=== PATIENT | female | born 1970 | race Caucasian/White ===

== ENCOUNTER 2017-10-04 06:43 | Emergency (ER) | payer BC ==
[2017-10-04] MEDS ORDERED: Sodium Chloride 0.9% 10 ML Syringe FLUSH PRN (06:56)
[2017-10-04] MEDS ORDERED: Aspirin 81 MG Tab.Chew PO ONE (06:56)
[2017-10-04] MEDS ORDERED: Famotidine 20 MG/2 ML SDV IVPUSH ONE (06:57)
--- NOTE | 2017-10-04 07:02 | EDM.PDOC ---
ED HPI GENERAL MEDICAL PROBLEM - General Chief Complaint: Chest Pain Stated Complaint: CHEST PAIN Time Seen by Provider: 10/04/17 06:49 Source of Information: Reports: Patient History Limitations: Reports: No Limitations - History of Present Illness INITIAL COMMENTS - FREE TEXT/NARRATIVE: The patient presents with midsternal chest pain. This started last night. They only way she describes the pain is that it "hurts" and it is "pain." She has no shortness of breath with it. She has no fever but she has chills. She has had a cold recently with congestion and cough that is mild. She has no abdominal pain, nausea or vomiting. The pain was not made worse with exertion. She has never had pain like this before. She has no cardiac history. She does have HTN but no diabetes or hypercholesterolemia. She does not smoke. Onset: Gradual Duration: Day(s): (Last night) Location: Reports: Chest Quality: Reports: Other (Pain) Severity: Moderate Improves with: Reports: None Worsens with: Reports: None Associated Symptoms: Reports: Chest Pain, Cough (Mild), Fever/Chills. Denies: Diaphoresis, Headaches, Nausea/Vomiting, Shortness of Breath Middle Chest Pain Score (Numeric/FACES): 7 - Related Data Allergies Allergy/AdvReac Type Severity Reaction Status Date / Time amoxicillin Allergy Rash Verified 10/04/17 06:53 Home Meds: Home Meds Lisinopril 10 mg PO DAILY 10/04/17 [History] Past Medical History Cardiovascular History: Reports: Hypertension Social & Family History - Tobacco Use Smoking Status *Q: Never Smoker ED ROS GENERAL - Review of Systems Review Of Systems: See Below Constitutional: Reports: Chills. Denies: Fever HEENT: Reports: No Symptoms Respiratory: Reports: No Symptoms Cardiovascular: Reports: Chest Pain Endocrine: Reports: No Symptoms GI/Abdominal: Reports: No Symptoms : Reports: No Symptoms Musculoskeletal: Reports: No Symptoms Skin: Reports: No Symptoms ED EXAM, GENERAL - Physical Exam Exam: See Below Exam Limited By: No Limitations General Appearance: Alert, No Apparent Distress Ears: Normal External Exam Nose: Normal Inspection Head: Atraumatic, Normocephalic Neck: Normal Inspection Respiratory/Chest: No Respiratory Distress, Lungs Clear, Normal Breath Sounds Cardiovascular: Regular Rate, Rhythm, No Edema, No Murmur GI/Abdominal: Soft, Non-Tender, No Organomegaly, No Mass Extremities: Normal Inspection Neurological: Alert, Oriented, No Motor/Sensory Deficits EKG INTERPRETATION EKG Date: 10/04/17 Time: 06:59 Rhythm: NSR Rate (Beats/Min): 71 [place]: LAD-Left [place] Deviation P-Wave: Present QRS: Normal ST-T: Normal QT: Normal Course - Vital Signs Last Recorded V/S: Last Vital Signs Temp 83.1 F L 10/04/17 06:49 Pulse 72 10/04/17 06:49 Resp 14 10/04/17 06:49 BP 130/76 10/04/17 06:49 Pulse Ox 96 10/04/17 06:49 - Orders/Labs/Meds Orders: Active Orders 24 hr Category Date Time Status Cardiac Monitoring [RC] . DIRECTED Care 10/04/17 06:56 Active EKG Documentation Completion [RC] STAT Care 10/04/17 06:56 Active Oxygen Therapy [RC] PRN Care 10/04/17 06:56 Active Peripheral IV Care [RC] . DIRECTED Care 10/04/17 06:56 Active Chest 1V Frontal [CR] Stat Exams 10/04/17 06:57 Taken CBC W/O DIFF,HEMOGRAM [HEME] MOTH@0700 Lab 10/08/17 07:00 Ordered CBC W/O DIFF,HEMOGRAM [HEME] MOTH@0700 Lab 10/11/17 07:00 Ordered CBC W/O DIFF,HEMOGRAM [HEME] MOTH@0700 Lab 10/15/17 07:00 Ordered CBC W/O DIFF,HEMOGRAM [HEME] MOTH@0700 Lab 10/18/17 07:00 Ordered CBC W/O DIFF,HEMOGRAM [HEME] MOTH@0700 Lab 10/22/17 07:00 Ordered CBC W/O DIFF,HEMOGRAM [HEME] MOTH@0700 Lab 10/25/17 07:00 Ordered Heparin Sodium/D5W [Heparin 25,000 Units in D5W 500 ML] Med 10/04/17 09:00 Active 25,000 units in 500 ml IV TITRATE Nitroglycerin/D5W [Nitroglycerin 25 MG/D5W 250 ML] Med 10/04/17 09:00 Active 25 mg in 250 ml IV TITRATE Sodium Chloride 0.9% [Saline Flush] Med 10/04/17 06:56 Active 10 ml FLUSH ASDIRECTED PRN Peripheral IV Insertion Adult [OM.PC] Stat Oth 10/04/17 06:56 Ordered Medication Orders Heparin Sodium/Dextrose (Heparin 25,000 Units In D5w 500 Ml) 25,000 units in 500 mls @ 0 mls/hr IV TITRATE YG; 12 UNITS/KG/HR PRN Reason: Protocol Nitroglycerin/Dextrose (Nitroglycerin 25 Mg/D5w 250 Ml) 25 mg in 250 mls @ 3 mls/hr IV TITRATE YG PRN Reason: Protocol Sodium Chloride (Saline Flush) 10 ml FLUSH ASDIRECTED PRN PRN Reason: Keep Vein Open Last Admin: 10/04/17 07:23 Dose: 10 ml Labs: Laboratory Tests 10/04/17 10/04/17 10/04/17 Range/Units 07:25 07:25 07:25 WBC 10.50 H (3.98-10.04) K/mm3 RBC 5.14 (3.98-5.22) M/mm3 Hgb 15.7 (11.2-15.7) gm/L Hct 46.4 H (34.1-44.9) % MCV 90.3 (79.4-94.8) fl MCH 30.5 (25.6-32.2) pg MCHC 33.8 (32.2-35.5) g/dl RDW Std Deviation 45.0 (36.4-46.3) fL Plt Count 194 (182-369) K/mm3 MPV 10.3 (9.4-12.3) fl Neut % (Auto) 53.0 (34.0-71.1) % Lymph % (Auto) 36.2 (19.3-51.7) % [place] % (Auto) 7.2 (4.7-12.5) % Eos % (Auto) 3.1 (0.7-5.8) Baso % (Auto) 0.3 (0.1-1.2) % Neut # (Auto) 5.56 (1.56-6.13) K/mm3 Lymph # (Auto) 3.80 H (1.18-3.74) K/mm3 [place] # (Auto) 0.76 H (0.24-0.36) K/mm3 Eos # (Auto) 0.33 (0.04-0.36) K/mm3 Baso # (Auto) 0.03 (0.01-0.08) K/mm3 D-Dimer, Quantitative 0.59 (0.19-0.59) mg/L Sodium 138 (136-145) mEq/L Potassium 4.0 (3.5-5.1) mEq/L Chloride 108 H (98-107) mEq/L Carbon Dioxide 17 L (21-32) mEq/L Anion Gap 17.0 H (5-15) BUN 13 (7-18) mg/dL Creatinine 0.9 (0.55-1.02) mg/dL Est Cr Clr Drug Dosing 60.46 mL/min Estimated GFR (MDRD) > 60 (>60) mL/min BUN/Creatinine Ratio 14.4 (14-18) Glucose 138 H (74-106) mg/dL Calcium 8.9 (8.5-10.1) mg/dL Total Bilirubin 0.6 (0.2-1.0) mg/dL AST 17 (15-37) U/L ALT 13 L (14-59) U/L Alkaline Phosphatase 56 (46-116) U/L Troponin I 0.090 H* (0.00-0.056) ng/mL Total Protein 7.1 (6.4-8.2) g/dl Albumin 3.0 L (3.4-5.0) g/dl Globulin 4.1 gm/dL Albumin/Globulin Ratio 0.7 L (1-2) TSH 3rd Generation (0.358-3.74) uIU/mL 10/04/17 Range/Units 07:25 WBC (3.98-10.04) K/mm3 RBC (3.98-5.22) M/mm3 Hgb (11.2-15.7) gm/L Hct (34.1-44.9) % MCV (79.4-94.8) fl MCH (25.6-32.2) pg MCHC (32.2-35.5) g/dl RDW Std Deviation (36.4-46.3) fL Plt Count (182-369) K/mm3 MPV (9.4-12.3) fl Neut % (Auto) (34.0-71.1) % Lymph % (Auto) (19.3-51.7) % [place] % (Auto) (4.7-12.5) % Eos % (Auto) (0.7-5.8) Baso % (Auto) (0.1-1.2) % Neut # (Auto) (1.56-6.13) K/mm3 Lymph # (Auto) (1.18-3.74) K/mm3 [place] # (Auto) (0.24-0.36) K/mm3 Eos # (Auto) (0.04-0.36) K/mm3 Baso # (Auto) (0.01-0.08) K/mm3 D-Dimer, Quantitative (0.19-0.59) mg/L Sodium (136-145) mEq/L Potassium (3.5-5.1) mEq/L Chloride (98-107) mEq/L Carbon Dioxide (21-32) mEq/L Anion Gap (5-15) BUN (7-18) mg/dL Creatinine (0.55-1.02) mg/dL Est Cr Clr Drug Dosing mL/min Estimated GFR (MDRD) (>60) mL/min BUN/Creatinine Ratio (14-18) Glucose (74-106) mg/dL Calcium (8.5-10.1) mg/dL Total Bilirubin (0.2-1.0) mg/dL AST (15-37) U/L ALT (14-59) U/L Alkaline Phosphatase (46-116) U/L Troponin I (0.00-0.056) ng/mL Total Protein (6.4-8.2) g/dl Albumin (3.4-5.0) g/dl Globulin gm/dL Albumin/Globulin Ratio (1-2) TSH 3rd Generation 2.888 (0.358-3.74) uIU/mL Meds: Medications Generic Name Dose Route Start Last Admin Trade Name Freq PRN Reason Stop Dose Admin Heparin Sodium/Dextrose 25,000 units in 500 mls @ 0 mls/hr 10/04/17 09:00 Heparin 25,000 Units In D5w 500 Ml IV TITRATE YG Protocol 12 UNITS/KG/HR Nitroglycerin/Dextrose 25 mg in 250 mls @ 3 mls/hr 10/04/17 09:00 Nitroglycerin 25 Mg/D5w 250 Ml IV TITRATE [facility] Protocol Sodium Chloride 10 ml 10/04/17 06:56 10/04/17 07:23 Saline Flush FLUSH 10 ml ASDIRECTED PRN Administration Keep Vein Open Discontinued Medications Generic Name Dose Route Start Last Admin Trade Name Radha PRN Reason Stop Dose Admin Aspirin 324 mg 10/04/17 06:56 10/04/17 07:16 Aspirin PO 10/04/17 06:57 324 mg ONETIME ONE Administration Famotidine 20 mg 10/04/17 06:57 10/04/17 07:22 Pepcid IVPUSH 10/04/17 06:58 20 mg ONETIME ONE Administration Heparin Sodium (Porcine) 5,000 units 10/04/17 08:54 Heparin Sodium IVPUSH 10/04/17 08:55 ONETIME ONE Nitroglycerin 0.4 mg 10/04/17 08:53 Nitrostat SL 10/04/17 08:54 ONETIME ONE - Re-Assessments/Exams Free Text/Narrative Re-Assessment/Exam: 10/04/17 07:03 I ordered an IV saline lock, labs, EKG, CXR, aspirin and pepcid 20mg IV. 10/04/17 08:57 Her EKG shows a NSR with a wondering baseline. I do not see any acute changes. Her CXR looks good. Her CBC looks good. Her CMP looks good with a normal creatinine. Her troponin came back elevated at 0.09. He D-dimer was negative. She is having a nonSTEMI. She is still having some chest pain so I ordered nitro sublingual 0.4mg X 3 and a nitro drip. I also ordered a heparin bolus of 5,000units and a drip of 1,000 units per hour. I feel she needs to go to [place] to see a weekend caregiver. The patient wants to go to [place] so I called [place] and talked with Dr Rivera the weekend caregiver media consultant and he accepted the patient. I also talked with Dr Kirkpatrick the hospitalist and he agreed to the transfer also. 10/04/17 09:08 Departure - Departure Time of Disposition: 09:10 Disposition: DC/Tfer to [facility] Reason for Transfer *Q: Other Condition: Good Clinical Impression: Acute myocardial infarction Qualifiers: Myocardial infarction ST status: non-ST elevation myocardial infarction Qualified Code(s): I21.4 - Non-ST elevation (NSTEMI) myocardial infarction Referrals: Susan Tracey MD [Primary Care Provider] - Forms: ED Department Discharge - My Orders Last 24 Hours: My Active Orders 10/04/17 06:56 Cardiac Monitoring [RC] . DIRECTED EKG Documentation Completion [RC] STAT Oxygen Therapy [RC] PRN Peripheral IV Care [RC] . DIRECTED Sodium Chloride 0.9% [Saline Flush] 10 ml FLUSH ASDIRECTED PRN Peripheral IV Insertion Adult [OM.PC] Stat 10/04/17 06:57 Chest 1V Frontal [CR] Stat 10/04/17 09:00 Heparin Sodium/D5W [Heparin 25,000 Units in D5W 500 ML] 25,000 units in 500 ml IV TITRATE Nitroglycerin/D5W [Nitroglycerin 25 MG/D5W 250 ML] 25 mg in 250 ml IV TITRATE 10/08/17 07:00 CBC W/O DIFF,HEMOGRAM [HEME] MOTH@0700 10/11/17 07:00 CBC W/O DIFF,HEMOGRAM [HEME] MOTH@0700 10/15/17 07:00 CBC W/O DIFF,HEMOGRAM [HEME] MOTH@0700 10/18/17 07:00 CBC W/O DIFF,HEMOGRAM [HEME] MOTH@0700 10/22/17 07:00 CBC W/O DIFF,HEMOGRAM [HEME] MOTH@0700 10/25/17 07:00 CBC W/O DIFF,HEMOGRAM [HEME] MOTH@0700 - Assessment/Plan Last 24 Hours: My Active Orders 10/04/17 06:56 Cardiac Monitoring [RC] . DIRECTED EKG Documentation Completion [RC] STAT Oxygen Therapy [RC] PRN Peripheral IV Care [RC] . DIRECTED Sodium Chloride 0.9% [Saline Flush] 10 ml FLUSH ASDIRECTED PRN Peripheral IV Insertion Adult [OM.PC] Stat 10/04/17 06:57 Chest 1V Frontal [CR] Stat 10/04/17 09:00 Heparin Sodium/D5W [Heparin 25,000 Units in D5W 500 ML] 25,000 units in 500 ml IV TITRATE Nitroglycerin/D5W [Nitroglycerin 25 MG/D5W 250 ML] 25 mg in 250 ml IV TITRATE 10/08/17 07:00 CBC W/O DIFF,HEMOGRAM [HEME] MOTH@69910/11/17 07:00 CBC W/O DIFF,HEMOGRAM [HEME] MOTH@69910/15/17 07:00 CBC W/O DIFF,HEMOGRAM [HEME] MOTH@69910/18/17 07:00 CBC W/O DIFF,HEMOGRAM [HEME] MOTH@69910/22/17 07:00 CBC W/O DIFF,HEMOGRAM [HEME] MOTH@69910/25/17 07:00 CBC W/O DIFF,HEMOGRAM [HEME] MOTH@699
[2017-10-04] MEDS ORDERED: Nitroglycerin 0.4 MG Tab.SL SL ONE (08:53)
[2017-10-04] MEDS ORDERED: Heparin Sodium 5,000 Units/ML Vial IVPUSH ONE (08:54)
[2017-10-04] MEDS ORDERED: Heparin Sodium/D5W 25,000 UNITS/500 ML BAG IV SCH (09:00)
[2017-10-04] MEDS ORDERED: Nitroglycerin/D5W 25 MG/250 ML BOTTLE IV SCH (09:00)
--- NOTE | 2017-10-04 09:12 | CR ---
Chest: Portable view of the chest was obtained. Comparison: No prior chest x-ray. Heart size and mediastinum are within normal limits for portable technique. Lungs are clear. Bony structures are grossly intact. Impression: 1. Nothing acute is appreciated on portable chest x-ray. Diagnostic code #1
[2017-10-04] MEDS ORDERED: Tenecteplase 50 MG Kit ONE (09:34)
[2017-10-04] MEDS ORDERED: Tenecteplase 50 MG Kit IV ONE (09:36)
== END 2017-10-04 09:59 ==
LOC: JD.ED 06:43
DX: I21.4 Non-ST elevation (NSTEMI) myocardial infarction (principal); I10 Essential (primary) hypertension; Z79.899 Other long term (current) drug therapy; Z88.1 Allergy status to other antibiotic agents
CPT/HCPCS: 36415; 71010; 80053; 84443; 84484; 85025; 85379; 93005; 96365; 96375; 99285; A9270; J1644; J3101; J7050; 93010